=== PATIENT | female | born 1980 | race Caucasian/White ===

== ENCOUNTER 2017-08-04 20:45 | Inpatient (IN) | payer SELFPAY ==
[~2017-08-04] VITALS: Ht 152.4 cm; Wt 80.3 kg
[2017-08-04 20:48] VITALS: BP 155/94; PULSE 114; RESP 16; TEMP 99.2; O2SAT 99
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
[2017-08-04] MEDS ORDERED: MORPHINE SULFATE 2 MG/ML SYRINGE IM ONE ×2 (21:15→21:45)
[2017-08-04] MEDS ORDERED: TETANUS/DIPHTHERIA TOXOID ADULT 0.5 ML VIAL IM ONE (21:15)
[2017-08-04] MEDS ORDERED: SODIUM CHLOR 0.9% 1000 ML INJ 1,000 ML IV SCH (22:00)
[2017-08-04] MEDS ORDERED: LORazepam 2 MG/ML VIAL IV PUSH ONE (22:00)
--- NOTE | 2017-08-04 22:01 | RADRPT ---
EXAM DATE: 08/04/2017 9:49 PM EDT AGE/SEX: 36 years / Female INDICATIONS: Fracture due to fall. CLINICAL DATA: This is the patient's initial encounter. Patient reports that signs and symptoms have been present for 1 day and indicates a pain score of 8/10. MEDICAL/SURGICAL HISTORY: None. Tubal ligation. COMPARISON: No prior [place] exams available for comparison. FINDINGS: Acute displaced fractures are noted involving the proximal portion of the right fibula and the distal third of the right tibia. CONCLUSION: Acute displaced fractures involving the proximal portion of the right fibula and the distal third of the right tibia. Electronically signed by: Slade Rodas MD 08/04/2017 10:00 PM EDT
[2017-08-04 22:07] LABS: AUTOMATED NEUTROPHIL # 6.3 TH/MM3 (1.8-7.7); BASOPHIL # 0.1 TH/MM3 (0-0.2); BASOPHIL % 1.5 % (0.0-2.0); EOSINOPHIL # 0.1 TH/MM3 (0-0.4); EOSINOPHIL % 0.6 % (0.0-4.0); HEMATOCRIT 41.8 % (35.0-46.0); HEMOGLOBIN 14.1 GM/DL (11.6-15.3); LYMPH % 21.3 % (9.0-44.0); LYMPHOCYTE # 1.9 TH/MM3 (1.0-4.8); MEAN CELL VOLUME 94.4 FL (80.0-100.0); MEAN CORPUSCULAR HEMOGLOBIN 31.9 PG (27.0-34.0); MEAN CORPUSCULAR HGB CONC 33.8 % (32.0-36.0); MEAN PLATELET VOLUME 7.2 FL (7.0-11.0); MONO % 6.9 % (0.0-8.0); MONOCYTE # 0.6 TH/MM3 (0-0.9); NEUT % 69.7 % (16.0-70.0); PLATELET COUNT 375 TH/MM3 (150-450); RED BLOOD COUNT 4.43 MIL/MM3 (4.00-5.30); RED CELL DISTRIBUTION WIDTH 12.3 % (11.6-17.2)
[2017-08-04 22:13] LABS: CHLORIDE 111 MEQ/L (98-107); SODIUM (NA) 141 MEQ/L (136-145)
[2017-08-04 22:14] VITALS: BP 135/82; PULSE 87; RESP 20; O2SAT 98
[2017-08-04 22:16] LABS: BICARBONATE 18.4 MEQ/L (21.0-32.0); BLOOD UREA NITROGEN 11 MG/DL (7-18); CALCIUM 8.9 MG/DL (8.5-10.1); GLUCOSE,RANDOM 112 MG/DL (74-106)
[2017-08-04 22:19] LABS: ALT (GPT) 25 U/L (10-53); AST (GOT) 21 U/L (15-37); CREATININE 0.75 MG/DL (0.50-1.00); GLOMERULAR FILTRATION RATE 88 ML/MIN (>89)
[2017-08-04 22:21] LABS: TOTAL BILIRUBIN ADULT 0.1 MG/DL (0.2-1.0); TOTAL PROTEIN 8.5 GM/DL (6.4-8.2)
[2017-08-04 22:22] LABS: ALKALINE PHOSPHATASE 144 U/L (45-117)
[2017-08-04] MEDS ORDERED: ACETAMINOPHEN 325 MG TAB PO PRN (22:30)
[2017-08-04] MEDS ORDERED: LACTULOSE SYRUP 20 GM/30 ML CUP PO PRN (22:30)
[2017-08-04] MEDS ORDERED: BISACODYL 10 MG SUPP RECTAL PRN (22:30)
[2017-08-04] MEDS ORDERED: ACETAMINOPHEN/HYDROcodone 325 MG/5 MG TAB PO PRN (22:30)
[2017-08-04] MEDS ORDERED: MAGNESIUM HYDROXIDE SUSP 30 ML CUP PO PRN (22:30)
[2017-08-04] MEDS: SODIUM CHLOR 0.9% 1000 ML INJ 1,000 ML IV SCH (22:30)
[2017-08-04] MEDS ORDERED: SENNOSIDES 8.6 MG TAB PO PRN (22:30)
[2017-08-04] MEDS ORDERED: METOCLOPRAMIDE HCL 10 MG/2 ML VIAL IV PUSH PRN (22:30)
[2017-08-04] MEDS ORDERED: SODIUM CHLORIDE 0.9% FLUSH 10 ML FLUSH IV FLUSH PRN (22:30)
[2017-08-04] MEDS ORDERED: MORPHINE SULFATE 4 MG/ML INJ IV PUSH ONE (22:45)
[2017-08-04 23:05] VITALS: BP 131/78; PULSE 116; RESP 20; O2SAT 97
[2017-08-05] VITALS (9 sets, daily range): BP systolic 98–132; BP diastolic 55–86; PULSE 67–91; RESP 18–20; TEMP 97.7–98.3; O2SAT 96–99
[2017-08-05] MEDS: MORPHINE SULFATE 4 MG/ML INJ IV PUSH PRN ×3 (01:33→23:38)
[2017-08-05] MEDS ORDERED: LACTATED RINGER'S 1000 ML IV PRN (02:30)
[2017-08-05] MEDS ORDERED: POVIDONE IODINE 5% (ANTISEPSIS KIT) 4 APPLICATIONS EACH NARE PRN (02:30)
[2017-08-05] MEDS ORDERED: SODIUM CHLORID 0.9% 500 ML IV PRN (02:30)
[2017-08-05] MEDS ORDERED: CHLORHEXIDINE GLUCONATE 2 % 1 PACK (2 CLOTHS) TOPICAL PRN (02:30)
[2017-08-05] MEDS ORDERED: MORPHINE SULFATE 4 MG/ML INJ IV ONE ×2 (03:00→12:30)
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
[2017-08-05] MEDS ORDERED: LORazepam 2 MG/ML VIAL IV PUSH ONE (04:15)
[2017-08-05] MEDS: HYDROmorphone HCL PF 0.5 MG/0.5 ML SYRINGE IV PRN ×3 (04:19→19:29)
[2017-08-05 07:31] LABS: AUTOMATED NEUTROPHIL # 6.3 TH/MM3 (1.8-7.7); BASOPHIL % 0.4 % (0.0-2.0); EOSINOPHIL % 0.4 % (0.0-4.0); HEMATOCRIT 37.8 % (35.0-46.0); HEMOGLOBIN 12.7 GM/DL (11.6-15.3); LYMPH % 26.7 % (9.0-44.0); LYMPHOCYTE # 2.6 TH/MM3 (1.0-4.8); MEAN CELL VOLUME 95.8 FL (80.0-100.0); MEAN CORPUSCULAR HEMOGLOBIN 32.2 PG (27.0-34.0); MEAN CORPUSCULAR HGB CONC 33.6 % (32.0-36.0); MONO % 7.9 % (0.0-8.0); MONOCYTE # 0.8 TH/MM3 (0-0.9); NEUT % 64.6 % (16.0-70.0); PLATELET COUNT 338 TH/MM3 (150-450); RED BLOOD COUNT 3.95 MIL/MM3 (4.00-5.30); RED CELL DISTRIBUTION WIDTH 13.3 % (11.6-17.2); WHITE BLOOD COUNT 9.8 TH/MM3 (4.0-11.0)
[2017-08-05 07:52] LABS: ALBUMIN 3.3 GM/DL (3.4-5.0); ALT (GPT) 20 U/L (10-53); AST (GOT) 17 U/L (15-37); BICARBONATE 18.8 MEQ/L (21.0-32.0); BLOOD UREA NITROGEN 10 MG/DL (7-18); CALCIUM 7.8 MG/DL (8.5-10.1); CHLORIDE 116 MEQ/L (98-107); CREATININE 0.62 MG/DL (0.50-1.00); GLOMERULAR FILTRATION RATE 110 ML/MIN (>89); GLUCOSE,RANDOM 78 MG/DL (74-106); SODIUM (NA) 147 MEQ/L (136-145)
[2017-08-05 07:55] LABS: ALKALINE PHOSPHATASE 112 U/L (45-117); TOTAL BILIRUBIN ADULT 0.3 MG/DL (0.2-1.0); TOTAL PROTEIN 7.2 GM/DL (6.4-8.2)
[2017-08-05] MEDS: DOCUSATE SODIUM 50 MG/SENNA 8.6 MG TAB PO SCH ×3 (09:00→19:52)
[2017-08-05] MEDS: SODIUM CHLORIDE 0.9% FLUSH 10 ML FLUSH IV FLUSH SCH ×2 (09:00→19:44)
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
[2017-08-05] MEDS ORDERED: *morphine SULFATE 4 MG/ML PERIprocedure ONLY ONE (10:33)
[2017-08-05] MEDS ORDERED: MIDAZOLAM HCL 2 MG/2 ML VIAL ONE (11:57)
[2017-08-05] MEDS ORDERED: GLYCOPYRROLATE 1 MG/5 ML SYRINGE IV PUSH ONE (12:00)
[2017-08-05] MEDS ORDERED: LACTATED RINGER'S 1000 ML INJ 1,000 ML IV ONE (12:00)
[2017-08-05] MEDS ORDERED: LIDOCAINE HCL 1% PF 5 ML SYRINGE OTHER ONE (12:00)
[2017-08-05] MEDS ORDERED: NEOSTIGMINE 5 MG/5 ML SYRINGE IV PUSH ONE (12:00)
[2017-08-05] MEDS ORDERED: ONDANSETRON HCL 4 MG/2 ML VIAL IV ONE (12:00)
[2017-08-05] MEDS ORDERED: ROCURONIUM INJ 50 MG/5 ML SYRINGE IV PUSH ONE (12:00)
[2017-08-05] MEDS ORDERED: DEXAMETHASONE SOD PHOS 4 MG/ML VIAL IV ONE (12:00)
[2017-08-05] MEDS ORDERED: MIDAZOLAM HCL 2 MG/2 ML VIAL IV ONE (12:30)
[2017-08-05] MEDS ORDERED: VANCOMYCIN HCL 1000 MG VIAL ONE (12:59)
[2017-08-05] MEDS ORDERED: ceFAZolin INJ 1,000 MG VIAL ONE (12:59)
[2017-08-05] MEDS ORDERED: ACETAMINOPHEN 1000 MG/100 ML 100 ML IV ONE (13:13)
[2017-08-05] MEDS ORDERED: FAMOTIDINE 20 MG/2 ML VIAL ONE (13:13)
--- NOTE | 2017-08-05 14:28 | PD.OP ---
cc: Jovanny Howard MD Operative Report Date of Surgery: Aug 05, 2017 Preoperative Diagnosis: Right tibia and fibula shaft fracture Postoperative Diagnosis: Same Procedure: Right tibia treatment of fracture with intramedullary nail Anesthesia: General Surgeon: Jovanny Howard Volunteer Services Manager(s): KUN Jiménez The surgical procedure was assisted by my Advanced Registered Nurse Practitioner. My COMMERCIAL ATTORNEY presence was necessary throughout this case for the manipulation and positioning of the surgical extremity. My COMMERCIAL ATTORNEY was assisting me throughout the duration of this procedure. The skill set of an Advance Registered Nurse Practitioner was medically necessary to complete this procedure. During the surgical case, the surgical aide was working at the back table and the Advance Registered Nurse Practitioner was directly assisting me. Operation and Findings: Implants: Synthes tibal nail, size: 9 x 285 Estimated blood loss: 150 cc The patient received intravenous vancomycin and Ancef. After the appropriate anesthesia was administered, the patient was prepped and draped in the supine position in the usual sterile fashion. Skin assessment showed no wounds around the tibia but small abrasion around anterior inferior knee. There was mild swelling noted to the leg. We made incision proximal to the patella. We carefully dissected down to the quadriceps tendon. An in-line longitudinal split to the quadriceps tendon was completed. The capsule of the knee was entered. We placed the smooth trocar within the knee joint down to the proximal tibia, protecting the patella and trochlea during the case. We then reduced the tibia fracture manually and under fluoroscopic imaging. A ball-tipped guidewire was placed into the tibial shaft, passing the fracture site. This was placed down to the distal physeal line of the tibia. We then sequentially reamed the tibia to 1 mm larger than the implanted tibial nail. We obtained good cortical chatter. We measured the appropriate length for the tibial nail. We then passed the tibial nail into the medullary canal of the tibia. We used the perfect yuhaaviatam technique distally to visualize the distal tibial screw holes. We placed 2 screws distally. We confirmed we had anatomic alignment and rotation of the leg. We then back slapped the nail to obtain excellent cortical compression. The nail was secured proximally with 1 screw, using the associated jig as a guide . We thoroughly irrigated the incisions including a lavage of the arthrotomy site proximally. The quadriceps split was closed with a #1 Vicryl. The remaining incisions were closed with #2-0 Vicryl, followed by wan. The postoperative plan is for nonweightbearing with early range of motion of the knee and ankle. Chemical DVT prophylaxis will be performed with Lovenox followed by aspirin. Jovanny Howard MD Aug 05, 2017 14:28
[2017-08-05] MEDS ORDERED: diphenhydrAMINE HCL 25 MG CAP PO PRN (14:30)
[2017-08-05] MEDS ORDERED: PHARMACY INFORMATION XX ONE (14:30)
[2017-08-05] MEDS ORDERED: ASPI-183 PO (14:30)
[2017-08-05] MEDS ORDERED: NALOXONE HCL 0.4 MG/ML AMP IV PUSH PRN (14:30)
[2017-08-05] MEDS ORDERED: NURSING INFORMATION XX PRN (14:30)
[2017-08-05] MEDS ORDERED: NORC5TAB PO (14:30)
[2017-08-05] MEDS ORDERED: ONDANSETRON ODT 4 MG TAB PO PRN (14:30)
[2017-08-05] MEDS ORDERED: ACETAMINOPHEN/HYDROcodone 325 MG/5 MG TAB PO PRN (14:30)
[2017-08-05] MEDS ORDERED: Post-op Orders (for Pharmacy) XX ONE (14:30)
[2017-08-05] MEDS ORDERED: MAGNESIUM HYDROXIDE SUSP 30 ML CUP PO PRN (14:30)
[2017-08-05] MEDS ORDERED: ENOX40IN SQ (14:30)
[2017-08-05] MEDS ORDERED: *MEPERIDINE 25 MG INJ VIAL PERIprocedural Use ONLY ONE (14:39)
[2017-08-05] MEDS ORDERED: DO NOT ADM ANY ANTICOAGULANT DRUGS PRN (14:42)
[2017-08-05] MEDS: DEXT 5%-NACL 0.45% 1000 ML INJ 1,000 ML IV SCH (15:00)
[2017-08-05] MEDS ORDERED: HYDROmorphone HCL PF 2 MG/ML VIAL ONE (15:09)
--- NOTE | 2017-08-05 15:43 | EKG ---
Date Performed: 08/04/2017 Time Performed: 22:01:17 PTAGE: 36 years EKG: SINUS TACHYCARDIA ABNORMAL RHYTHM ECG NO PREVIOUS TRACING DOCTOR: Carlos Stoddard Interpretating Date/Time 08/05/2017 15:43:01
--- NOTE | 2017-08-05 16:07 | RADRPT ---
EXAM DATE: 08/05/2017 3:58 PM EDT AGE/SEX: 36 years / Female INDICATIONS: Open reduction, internal fixation of right tibia. CLINICAL DATA: This is the patient's initial encounter. Patient reports that signs and symptoms have been present for 1 day and indicates a pain score of Nonresponsive. MEDICAL/SURGICAL HISTORY: None. None. COMPARISON: [facility], TIBIA/FIBULA RIGHT (AP/LAT), 08/04/2017. . FINDINGS: Interim rodding of the spiral fracture of the mid to distal shaft of the right tibia. Alignment is ne ar-anatomic. The proximal shaft fracture of the right fibula is also now in near-anatomic alignment. No acute complications are demonstrated. CONCLUSION: Interim tibial rodding with no evidence of an acute complication. Near-anatomic alignment of fracture s distal shaft of the right tibia and proximal shaft of the right fibula. Electronically signed by: Olegario Bishop MD 08/05/2017 4:06 PM EDT
[2017-08-05] MEDS: ACETAMINOPHEN/HYDROcodone 325 MG/5 MG TAB PO PRN (21:49)
[2017-08-06] MEDS: DEXT 5%-NACL 0.45% 1000 ML INJ 1,000 ML IV SCH ×2 (00:22→18:00)
[2017-08-06] MEDS: ACETAMINOPHEN/HYDROcodone 325 MG/5 MG TAB PO PRN (03:34)
[2017-08-06 04:17] VITALS: BP 128/58; PULSE 87; RESP 18; TEMP 98.1; O2SAT 98
[2017-08-06] MEDS: SODIUM CHLOR 0.9% 1000 ML INJ 1,000 ML IV SCH ×2 (04:30→13:49)
[2017-08-06] MEDS: MORPHINE SULFATE 4 MG/ML INJ IV PUSH PRN ×5 (04:35→21:52)
[2017-08-06 08:00] VITALS: BP 141/92; PULSE 92; RESP 19; TEMP 98.2; O2SAT 98
[2017-08-06] MEDS: DOCUSATE SODIUM 50 MG/SENNA 8.6 MG TAB PO SCH ×3 (08:09→21:46)
[2017-08-06] MEDS: SODIUM CHLORIDE 0.9% FLUSH 10 ML FLUSH IV FLUSH SCH ×2 (08:10→21:59)
[2017-08-06] MEDS ORDERED: oxyCODONE/ACETAMINOPHEN 5 MG/325 MG TAB PO PRN (08:45)
[2017-08-06] MEDS ORDERED: NALOXONE HCL 0.4 MG/ML AMP IV PUSH PRN ×2 (08:45→16:45)
[2017-08-06] MEDS ORDERED: oxyCODONE/ACETAMINOPHEN 10 MG/325 MG TAB PO PRN ×2 (08:45→16:45)
[2017-08-06] MEDS ORDERED: MULTIVITAMINS/MINERALS THERAPEUTIC TAB PO SCH (09:00)
--- NOTE | 2017-08-06 10:42 | HHI.PR ---
Subjective Remarks Patient states that the [place] is not helping with her pain postsurgery. Still complains of a lot of pain over the right tib-fib fracture and requesting another pain medication at this time. Objective Vitals Vital Signs Date Time Temp Pulse Resp B/P (MAP) Pulse Ox O2 Delivery O2 Flow Rate FiO2 08/06/17 08:00 98.2 92 19 141/92 (108) 98 08/06/17 04:17 98.1 87 18 128/58 (81) 98 08/05/17 23:58 98.3 80 18 123/77 (92) 97 08/05/17 19:55 97.7 80 18 130/75 (93) 98 08/05/17 15:25 98.2 80 18 132/86 (101) 99 08/05/17 15:15 91 18 147/70 (95) 99 Nasal Cannula 3 08/05/17 15:00 96 18 141/63 (89) 96 Nasal Cannula 3 08/05/17 14:40 97.8 110 18 168/74 (105) 94 Nasal Cannula 3 I/O 08/05/17 08/05/17 08/05/17 08/06/17 08/06/17 08/06/17 07:00 15:00 23:00 07:00 15:00 23:00 Intake Total 300 ml 1000 ml 120 ml 480 ml Output Total 650 ml 550 ml 100 ml 650 ml Balance -350 ml 450 ml 20 ml -170 ml Intake Oral 0 ml 120 ml 480 ml IV Total 300 ml Other 1000 ml Output Urine Total 650 ml 400 ml 100 ml 650 ml Estimated Blood Loss 150 ml # Bowel Movements 0 0 Result Diagram: 08/05/17 0649 08/05/17 0649 Objective Remarks GENERAL: This is a well-nourished, well-developed patient, in no apparent distress. CARDIOVASCULAR: Regular rate and rhythm RESPIRATORY: Clear to auscultation. Breath sounds equal bilaterally. No wheezes , rales, or rhonchi. GASTROINTESTINAL: Abdomen soft, non-tender, nondistended. Normal active bowel sounds MUSCULOSKELETAL: Right extremity bandage clean dry intact NEURO: Alert & Oriented x4 to person, place, time, situation. Moves all ext x4 Procedures 08/05 tib-fib fracture status post IM nailing on the right with Dr. Howard A/P Problem List: (1) Tibia/fibula fracture ICD Code: S82.209A - Unspecified fracture of shaft of unspecified tibia, initial encounter for closed fracture; S82.409A - Unspecified fracture of shaft of unspecified fibula, initial encounter for closed fracture Status: Acute Assessment and Plan 36 y/o female with no medical history presented to the ED with complaints of right lower extremity pain. Tib/Fib fracture, right status post operative day #1 IM nailing continue postoperative care, pain control, physical therapy per Dr. Howard Will change [place] to Percocet due to patient's continued intractable pain today. Continue bowel regimen DVT prophylaxis: SCDs on non affected leg and Lovenox. Discharge Planning Home with home health care when pain better control. Problem Qualifiers (1) Tibia/fibula fracture: Qualified Codes: S82.201A - Unspecified fracture of shaft of right tibia, initial encounter for closed fracture; S82.401A - Unspecified fracture of shaft of right fibula, initial encounter for closed fracture Loree Hewitt MD Aug 06, 2017 10:42
[2017-08-06 12:00] VITALS: BP 136/81; PULSE 80; RESP 18; TEMP 97.2; O2SAT 100
[2017-08-06] MEDS ORDERED: PROPOFOL 200 MG/20 ML AMP IV ONE (12:00)
[2017-08-06] MEDS ORDERED: NEOSTIGMINE 5 MG/5 ML SYRINGE IV PUSH ONE (12:00)
[2017-08-06] MEDS ORDERED: LIDOCAINE HCL 1% PF 5 ML SYRINGE OTHER ONE (12:00)
[2017-08-06] MEDS ORDERED: ROCURONIUM INJ 50 MG/5 ML SYRINGE IV PUSH ONE (12:00)
[2017-08-06] MEDS ORDERED: DEXAMETHASONE SOD PHOS 4 MG/ML VIAL IV ONE (12:00)
[2017-08-06] MEDS ORDERED: ONDANSETRON HCL 4 MG/2 ML VIAL IV PUSH ONE (12:00)
[2017-08-06] MEDS ORDERED: GLYCOPYRROLATE 1 MG/5 ML SYRINGE IV PUSH ONE (12:00)
[2017-08-06] MEDS ORDERED: LACTATED RINGER'S 1000 ML INJ 1,000 ML IV ONE (12:00)
[2017-08-06] MEDS ORDERED: SUCCINYLCHOLINE CHLORIDE 100 MG/5 ML SYRINGE IV PUSH ONE (12:00)
[2017-08-06] MEDS ORDERED: ENOXAPARIN SODIUM 40 MG/0.4 ML SYRINGE SQ SCH (13:00)
--- NOTE | 2017-08-06 13:53 | PD.ORT.PN ---
Subjective Post Op Day #: 1 Subjective Remarks Patient is resting in bed with c/o moderate to severe pain to the right lower leg, ankle and calf. Objective Vitals Vital Signs Date Time Temp Pulse Resp B/P (MAP) Pulse Ox O2 Delivery O2 Flow Rate FiO2 08/06/17 08:00 98.2 92 19 141/92 (108) 98 08/06/17 04:17 98.1 87 18 128/58 (81) 98 08/05/17 23:58 98.3 80 18 123/77 (92) 97 08/05/17 19:55 97.7 80 18 130/75 (93) 98 08/05/17 15:25 98.2 80 18 132/86 (101) 99 08/05/17 15:15 91 18 147/70 (95) 99 Nasal Cannula 3 08/05/17 15:00 96 18 141/63 (89) 96 Nasal Cannula 3 08/05/17 14:40 97.8 110 18 168/74 (105) 94 Nasal Cannula 3 I/O 08/05/17 08/05/17 08/05/17 08/06/17 08/06/17 08/06/17 07:00 15:00 23:00 07:00 15:00 23:00 Intake Total 300 ml 1000 ml 120 ml 480 ml Output Total 650 ml 550 ml 100 ml 650 ml Balance -350 ml 450 ml 20 ml -170 ml Intake Oral 0 ml 120 ml 480 ml IV Total 300 ml Other 1000 ml Output Urine Total 650 ml 400 ml 100 ml 650 ml Estimated Blood Loss 150 ml # Bowel Movements 0 0 Result Diagram: 08/05/17 0649 08/05/17 0649 Procedures Measured compartments of the right lower leg Anterior: 31 mmhg Lateral: 38 mmhg Medial: 3 mmhg Posterior: 20 mmhg BP: 137/83 Objective Remarks Dressings are C/D/I. EHL/TA/G intact. 2+ DP. Calf compartments are firm and tender to touch, especially laterally. +SILT distally Assessment & Plan Ortho Post Op Day #: 1 Problem List: Assessment and Plan POD #1: Right Tibial Nail for TIB/Fib fracture 1. NWB RLE 2. Hold Lovenox for compartment syndrome and emergency fasciotomy of the calf 3. Consents on chart. Leg marked 4. Patient will be NPO. 5. Patient's Lovenox is being held 6. We will proceed with emergency surgery for right calf compartment syndrome. Dr. Howard to see and consent patient. Jaylen Mckeon Aug 06, 2017 13:52
[2017-08-06] MEDS ORDERED: GENTAMICIN SULFATE 80 MG/2 ML VIAL ONE (14:54)
[2017-08-06] MEDS ORDERED: CLINDAMYCIN PHOS 600 MG/4 ML VIAL ONE (15:50)
--- NOTE | 2017-08-06 16:34 | PD.OP ---
cc: Jovanny Howard MD Operative Report Date of Surgery: Aug 06, 2017 Preoperative Diagnosis: Right leg posttraumatic compartment syndrome Postoperative Diagnosis: Same Procedure: Right lower leg 4 compartment open fasciotomy Anesthesia: General Surgeon: Jovanny Howard Drill Sergeant(s): KUN Jiménez The surgical procedure was assisted by my Advanced Registered Nurse Practitioner. My SHOEBLACK presence was necessary throughout this case for the manipulation and positioning of the surgical extremity. My SHOEBLACK was assisting me throughout the duration of this procedure. The skill set of an Advance Registered Nurse Practitioner was medically necessary to complete this procedure. During the surgical case, the surgical clinical reviewer was working at the back table and the Advance Registered Nurse Practitioner was directly assisting me. Operation and Findings: Justification for the procedure. This is a 36-year-old female who underwent a routine intramedullary nail fixation surgery yesterday for a tibia/fibula fracture. That surgery was uncomplicated. At the end of the previous surgery the patient's compartments were soft without any evidence of compartment syndrome. When this patient was seen on postop rounds today she was complaining of significant pain around the calf which was not being managed well with medicines. The nurse practitioner who is rounding on the patient was suspicious of compartment syndrome since the patient had developed more significant swelling of the leg and the compartments were now starting to feel full and firm. At the bedside the nurse practitioner performed monitoring of the compartment pressures. Based on the results showing anterior 31, lateral 38 , and posterior 29 mmHg of pressure I felt that the patient does have evidence of compartment syndrome. I discussed the risks and benefits of surgical management with the patient at the bedside. I do recommend emergent surgical management for this condition to consist of open fasciotomy. She understands that she may have open wounds including a wound VAC which may require more surgical management for closure and/or skin grafting. She understands the risks of surgery include but are not limited to injury to nerves, blood vessels , bleeding, infection, need for further surgery, medical complications such as heart attack, stroke, . As far as coding purposes this surgery is unrelated to surgery that was done yesterday as far as intramedullary nailing. This current medical condition is not a complication to the intramedullary nail procedure. Rather, this is a known sequela/complication of significant traumatic injury to the soft tissues which were in addition to the bone fracture which are now requiring surgical management to the fascia/soft tissues. The patient was brought to the operative theater. General anesthesia was administered. She had just received Ancef 2 hours ago so we gave her a dose of clindamycin. The right lower extremity was prepped and draped in usual sterile fashion. We did note swelling of the leg most significant in the anterior and lateral compartments. We incised between these 2 compartments. We identified the fascia of the anterior compartment and incised through this proximally and distally and we did the same to the lateral compartment. We also incised intervening fascia to help release as much pressure as possible. The muscles did expand as expected. All muscles were tested that were exposed and they all had excellent color, consistency, contractility and quality. There was no evidence of necrosis. Once we completed this we were unable to close the skin due to the swelling. The lateral incision was approximately 15 cm. We made a small incision approximately 4 cm on the medial aspect of the leg off of the medial face of the tibia. We then performed fasciotomy of the posterior superficial and posterior deep compartments using Metzenbaum scissors. We irrigated all of the wounds. We were able to close the medial incision using 2- 0 Vicryl and 3-0 nylon. There is much less swelling on the medial side at this point. The lateral side was dressed with a vacuum-assisted dressing. Postoperative plan is for repeat surgical management either for secondary closure or skin grafting depending on how her swelling goes. At this point no changes in management for the fracture as previously described in my other operative note. Jovanny Howard MD Aug 06, 2017 16:34
[2017-08-06] MEDS ORDERED: PHARMACY INFORMATION XX ONE (16:45)
[2017-08-06] MEDS ORDERED: NURSING INFORMATION XX PRN (16:45)
[2017-08-06] MEDS ORDERED: Post-op Orders (for Pharmacy) XX ONE (16:45)
[2017-08-06] MEDS ORDERED: MAGNESIUM HYDROXIDE SUSP 30 ML CUP PO PRN (16:45)
[2017-08-06] MEDS ORDERED: *MEPERIDINE 25 MG INJ VIAL PERIprocedural Use ONLY ONE (16:54)
[2017-08-06] MEDS ORDERED: MIDAZOLAM HCL 2 MG/2 ML VIAL ONE (16:58)
[2017-08-06] MEDS ORDERED: *morphine SULFATE 8 MG/ML PERIprocedure ONLY ONE ×2 (17:04→17:10)
[2017-08-06] MEDS ORDERED: DIMETHICONE/OXYBENZONE/PADMIATE LIP BALM 4.25 GM TOPICAL ONE (17:10)
[2017-08-06] MEDS ORDERED: DO NOT ADM ANY ANTICOAGULANT DRUGS PRN (18:00)
[2017-08-06] MEDS: ALPRAZolam 0.25 MG TAB PO PRN (18:28)
[2017-08-06 20:05] VITALS: BP 124/59; PULSE 84; RESP 18; TEMP 97.7; O2SAT 97
[2017-08-06 20:15] LABS: HEMATOCRIT 31.5 % (35.0-46.0); HEMOGLOBIN 11.2 GM/DL (11.6-15.3)
[2017-08-06] MEDS: oxyCODONE/ACETAMINOPHEN 10 MG/325 MG TAB PO PRN ×2 (21:46→23:59)
[2017-08-07] VITALS: BP 123/61; PULSE 84; RESP 18; TEMP 97.9; O2SAT 97
[2017-08-07] MEDS: MORPHINE SULFATE 4 MG/ML INJ IV PUSH PRN ×5 (02:19→21:32)
[2017-08-07 04:00] VITALS: BP 112/60; PULSE 76; RESP 17; TEMP 98.1; O2SAT 97
[2017-08-07] MEDS: DEXT 5%-NACL 0.45% 1000 ML INJ 1,000 ML IV SCH ×2 (04:00→14:00)
[2017-08-07] MEDS: oxyCODONE/ACETAMINOPHEN 10 MG/325 MG TAB PO PRN ×5 (05:51→23:50)
[2017-08-07] MEDS: ALPRAZolam 0.25 MG TAB PO PRN ×3 (05:51→23:51)
[2017-08-07 08:00] VITALS: BP 120/83; PULSE 82; RESP 18; TEMP 97.2; O2SAT 98
[2017-08-07] MEDS: DOCUSATE SODIUM 50 MG/SENNA 8.6 MG TAB PO SCH ×2 (08:17→21:31)
[2017-08-07] MEDS: SODIUM CHLORIDE 0.9% FLUSH 10 ML FLUSH IV FLUSH SCH ×2 (08:18→21:31)
--- NOTE | 2017-08-07 10:58 | HHI.PR ---
Subjective Remarks Pain is much better controlled after surgery and also on Percocet. Patient complained of heartburn and requests medication for this. Has tried over-the- counter medication PPI in the past. Objective Vitals Vital Signs Date Time Temp Pulse Resp B/P (MAP) Pulse Ox O2 Delivery O2 Flow Rate FiO2 08/07/17 08:22 18 08/07/17 08:00 97.2 82 18 120/83 (95) 98 08/07/17 04:00 98.1 76 17 112/60 (77) 97 08/07/17 00:00 97.9 84 18 123/61 (81) 97 08/06/17 20:05 97.7 84 18 124/59 (80) 97 08/06/17 17:30 88 16 123/77 (92) 98 Room Air 08/06/17 17:15 90 16 113/58 (76) 97 Room Air 08/06/17 17:00 100 16 135/62 (86) 96 Room Air 08/06/17 16:49 98.3 108 16 141/97 (112) 96 08/06/17 12:00 97.2 80 18 136/81 (99) 100 I/O 08/06/17 08/06/17 08/06/17 08/07/17 08/07/17 08/07/17 07:00 15:00 23:00 07:00 15:00 23:00 Intake Total 480 ml 100 ml 950 ml 500 ml Output Total 650 ml 50 ml Balance -170 ml 100 ml 900 ml 500 ml Intake Oral 480 ml 500 ml IV Total 100 ml 50 ml Other 900 ml Output Urine Total 650 ml Drainage Total 0 ml Estimated Blood Loss 50 ml # Voids 3 3 # Bowel Movements 0 Result Diagram: 08/06/17200308/05/17 0649 Objective Remarks GENERAL: This is a well-nourished, well-developed patient, in no apparent distress. CARDIOVASCULAR: Regular rate and rhythm RESPIRATORY: Clear to auscultation. Breath sounds equal bilaterally. No wheezes , rales, or rhonchi. GASTROINTESTINAL: Abdomen soft, non-tender, nondistended. Normal active bowel sounds MUSCULOSKELETAL: Right extremity bandage clean dry intact wound VAC in place, NEURO: Alert & Oriented x4 to person, place, time, situation. Moves all ext x4 Procedures 08/05 tib-fib fracture status post IM nailing on the right with Dr. Howard A/P Problem List: (1) Tibia/fibula fracture ICD Code: S82.209A - Unspecified fracture of shaft of unspecified tibia, initial encounter for closed fracture; S82.409A - Unspecified fracture of shaft of unspecified fibula, initial encounter for closed fracture Status: Acute Assessment and Plan 36 y/o female with no medical history presented to the ED with complaints of right lower extremity pain. Tib/Fib fracture, right status post operative day #2 IM nailing continue postoperative care, pain control, physical therapy per Dr. Howard changed Barling to Percocet due to patient's continued intractable pain today. Acute compartment syndrome right, status post operative day #1 post open fasciotomy- continue postoperative care wound VAC per Dr. Howard GERD initiate PPI DVT prophylaxis: SCDs on non affected leg and Lovenox. Discharge Planning Home with home health care when pain better control and cleared by orthopedic surgery. Problem Qualifiers (1) Tibia/fibula fracture: Qualified Codes: S82.201A - Unspecified fracture of shaft of right tibia, initial encounter for closed fracture; S82.401A - Unspecified fracture of shaft of right fibula, initial encounter for closed fracture Loree Hewitt MD Aug 07, 2017 10:58
[2017-08-07] MEDS ORDERED: PANTOPRAZOLE SOD 40 MG DELAYED RELEASE TAB PO ONE (11:00)
[2017-08-07 12:00] VITALS: BP 115/79; PULSE 83; RESP 18; TEMP 98.1; O2SAT 99
[2017-08-07 16:00] VITALS: BP 121/58; PULSE 81; RESP 18; TEMP 97.9; O2SAT 95
[2017-08-07] MEDS: ENOXAPARIN SODIUM 40 MG/0.4 ML SYRINGE SQ SCH (16:46)
--- NOTE | 2017-08-07 17:33 | PD.ORT.PN ---
Subjective Subjective Remarks Patient is resting in bed with overall improvement in pain. Pain has been more manageable today per patient. Objective Vitals Vital Signs Date Time Temp Pulse Resp B/P (MAP) Pulse Ox O2 Delivery O2 Flow Rate FiO2 08/07/17 17:01 18 08/07/17 16:04 18 08/07/17 16:00 97.9 81 18 121/58 (79) 95 08/07/17 12:00 98.1 83 18 115/79 (91) 99 08/07/17 08:00 97.2 82 18 120/83 (95) 98 08/07/17 04:00 98.1 76 17 112/60 (77) 97 08/07/17 00:00 97.9 84 18 123/61 (81) 97 08/06/17 20:05 97.7 84 18 124/59 (80) 97 08/06/17 17:30 88 16 123/77 (92) 98 Room Air I/O 08/06/17 08/06/17 08/06/17 08/07/17 08/07/17 08/07/17 07:00 15:00 23:00 07:00 15:00 23:00 Intake Total 480 ml 100 ml 950 ml 500 ml Output Total 650 ml 50 ml Balance -170 ml 100 ml 900 ml 500 ml Intake Oral 480 ml 500 ml IV Total 100 ml 50 ml Other 900 ml Output Urine Total 650 ml Drainage Total 0 ml Estimated Blood Loss 50 ml # Voids 3 3 # Bowel Movements 0 Result Diagram: 08/06/17200308/05/17 0649 Objective Remarks Dressings are C/D/I. EHL/TA/G intact. 2+ DP. Calf compartments mildly firm but less tender and softer than yesterday's exam. +SILT distally. Less tenderness to ankle today. Mild ecchymosis. Assessment & Plan Assessment and Plan POD #2: Right Tibial Nail for TIB/Fib fracture POD #1: Right calf fasciotomy for compartment syndrome 1. NWB RLE 2. Lovenox for DVT prophylaxis 3. Maintain wound vac at 125 continuous suction 4. Do not change dressings aside from wound vac. First dressing change in the office. 5. Plan will be to take patient back to OR for irrigation/debridement and closure of lateral surgical site once soft tissue swelling has improved. May be able to return to OR or Sunday. 6. Apply ice machine to the right calf to help aggressively manage swelling Jaylen Mckeon Aug 07, 2017 17:33
[2017-08-07 20:00] VITALS: BP 109/64; PULSE 82; RESP 17; TEMP 97.8; O2SAT 96
[2017-08-08 00:01] VITALS: BP 124/60; PULSE 80; RESP 17; TEMP 97.9; O2SAT 96
[2017-08-08] MEDS: MORPHINE SULFATE 4 MG/ML INJ IV PUSH PRN ×5 (02:43→23:10)
[2017-08-08] MEDS: oxyCODONE/ACETAMINOPHEN 10 MG/325 MG TAB PO PRN ×5 (05:44→21:32)
[2017-08-08 08:00] VITALS: BP 125/66; PULSE 71; RESP 20; TEMP 97.3; O2SAT 97
[2017-08-08] MEDS: SODIUM CHLORIDE 0.9% FLUSH 10 ML FLUSH IV FLUSH SCH ×2 (09:00→21:33)
[2017-08-08] MEDS: DOCUSATE SODIUM 50 MG/SENNA 8.6 MG TAB PO SCH ×2 (09:24→21:32)
[2017-08-08] MEDS: PANTOPRAZOLE SOD 40 MG DELAYED RELEASE TAB PO SCH (09:25)
[2017-08-08] MEDS: ALPRAZolam 0.25 MG TAB PO PRN ×2 (09:25→17:18)
[2017-08-08] MEDS: DEXT 5%-NACL 0.45% 1000 ML INJ 1,000 ML IV SCH ×3 (10:00→20:00)
--- NOTE | 2017-08-08 10:18 | HHI.PR ---
Subjective Remarks Pt frustrated today because RN dispensed her pain meds late. States that she was better controlled before but now it is a 12/12. Denies any CP/SOB/N/V Objective Vitals Vital Signs Date Time Temp Pulse Resp B/P (MAP) Pulse Ox O2 Delivery O2 Flow Rate FiO2 08/08/17 08:00 97.3 71 20 125/66 (85) 97 08/08/17 00:01 97.9 80 17 124/60 (81) 96 08/07/17 20:00 97.8 82 17 109/64 (79) 96 08/07/17 18:45 Room Air 08/07/17 17:01 18 08/07/17 16:04 18 08/07/17 16:00 97.9 81 18 121/58 (79) 95 08/07/17 12:00 98.1 83 18 115/79 (91) 99 I/O 08/07/17 08/07/17 08/07/17 08/08/17 08/08/17 08/08/17 07:00 15:00 23:00 07:00 15:00 23:00 Intake Total 500 ml 360 ml Output Total 50 ml 40 ml Balance 500 ml -50 ml 320 ml Intake Oral 500 ml 360 ml Drainage Total 50 ml 40 ml # Voids 3 2 Result Diagram: 08/06/17200308/05/17 0649 Imaging Last Impressions Tibia/Fibula X-Ray 08/05/17 0000 Signed Impressions: CONCLUSION: Interim tibial rodding with no evidence of an acute complication. Near-anatomic alignment of fractures distal shaft of the right tibia and proximal shaft of t he right fibula. Objective Remarks GENERAL: appears upset and uncomfortable. CARDIOVASCULAR: Regular rate and rhythm RESPIRATORY: Clear to auscultation. Breath sounds equal bilaterally. No wheezes GASTROINTESTINAL: Abdomen soft, non-tender, nondistended. Normal active bowel sounds MUSCULOSKELETAL: Right extremity bandage clean dry intact wound VAC in place, NEURO: answers questions, able to stand up and use her walker to use the restroom after my exam Procedures 08/05 tib-fib fracture status post IM nailing on the right with Dr. Howard A/P Problem List: (1) Tibia/fibula fracture ICD Code: S82.209A - Unspecified fracture of shaft of unspecified tibia, initial encounter for closed fracture; S82.409A - Unspecified fracture of shaft of unspecified fibula, initial encounter for closed fracture Status: Acute Assessment and Plan Tibia/fibula fracture 36 y/o female with no medical history presented to the ED with complaints of right lower extremity pain. POD #3: Right Tibial Nail for TIB/Fib fracture POD #2: Right calf fasciotomy for compartment syndrome Orthopedic sx following. Continue pain control. On lovenox for DVT proph. NWB RLE per ortho. Wound vac in place and dressing changes per ortho recs. Pt is scheduled to go back to OR or sunday for irrigation/debridement and closure of lateral surgical sites once swelling improves. GERD initiate PPI DVT prophylaxis: SCDs on non affected leg and Lovenox. Discharge Planning Home with home health care when pain better control, once all sx completed and cleared by orthopedic surgery. Problem Qualifiers (1) Tibia/fibula fracture: Qualified Codes: S82.201A - Unspecified fracture of shaft of right tibia, initial encounter for closed fracture; S82.401A - Unspecified fracture of shaft of right fibula, initial encounter for closed fracture Diane Farmer MD Aug 08, 2017 10:18
[2017-08-08 12:00] VITALS: BP 117/69; PULSE 74; RESP 18; TEMP 97.5; O2SAT 95
--- NOTE | 2017-08-08 12:47 | PD.ORT.PN ---
Subjective Subjective Remarks pain is better now, still is icing and elevating Objective Vitals Vital Signs Date Time Temp Pulse Resp B/P (MAP) Pulse Ox O2 Delivery O2 Flow Rate FiO2 08/08/17 12:00 97.5 74 18 117/69 (85) 95 08/08/17 08:00 97.3 71 20 125/66 (85) 97 08/08/17 00:01 97.9 80 17 124/60 (81) 96 08/07/17 20:00 97.8 82 17 109/64 (79) 96 08/07/17 18:45 Room Air 08/07/17 17:01 18 08/07/17 16:04 18 08/07/17 16:00 97.9 81 18 121/58 (79) 95 I/O 08/07/17 08/07/17 08/07/17 08/08/17 08/08/17 08/08/17 06:59 14:59 22:59 06:59 14:59 22:59 Intake Total 500 ml 360 ml 100 ml Output Total 50 ml 40 ml Balance 500 ml -50 ml 320 ml 100 ml Intake Oral 500 ml 360 ml IV Total 100 ml Drainage Total 50 ml 40 ml # Voids 3 2 Result Diagram: 08/06/17200308/05/17 0649 Objective Remarks Vac is C/D/I. EHL/TA/G intact. 2+ DP. Calf compartments are soft with less swelling. +SILT distally. Assessment & Plan Assessment and Plan POD #3: Right Tibial Nail for TIB/Fib fracture POD #2: Right calf fasciotomy for compartment syndrome 1. NWB RLE 2. Lovenox for DVT prophylaxis 3. Maintain wound vac at 125 continuous suction 4. Do not change dressings aside from wound vac. 5. Plan will be to take patient back to OR for irrigation/debridement and closure of lateral surgical site once soft tissue swelling has improved. May be able to return to OR or Sunday. 6. Apply ice machine to the right calf to help aggressively manage swelling Jovanny Howard MD Aug 08, 2017 12:47
[2017-08-08] MEDS: ENOXAPARIN SODIUM 40 MG/0.4 ML SYRINGE SQ SCH (15:32)
[2017-08-08 16:00] VITALS: BP 125/77; PULSE 80; RESP 18; TEMP 97.6; O2SAT 97
[2017-08-08 20:00] VITALS: BP 117/71; PULSE 88; RESP 18; TEMP 97.5; O2SAT 100
[2017-08-09 00:01] VITALS: BP 123/63; PULSE 90; RESP 18; TEMP 98.1; O2SAT 99
[2017-08-09] MEDS: ALPRAZolam 0.25 MG TAB PO PRN ×3 (01:19→17:36)
[2017-08-09] MEDS: oxyCODONE/ACETAMINOPHEN 10 MG/325 MG TAB PO PRN ×6 (01:19→22:48)
[2017-08-09] MEDS: MORPHINE SULFATE 4 MG/ML INJ IV PUSH PRN ×4 (03:07→20:08)
[2017-08-09] MEDS: DEXT 5%-NACL 0.45% 1000 ML INJ 1,000 ML IV SCH (04:59)
[2017-08-09 06:21] LABS: BICARBONATE 24.4 MEQ/L (21.0-32.0); CALCIUM 8.1 MG/DL (8.5-10.1); CREATININE 0.59 MG/DL (0.50-1.00)
[2017-08-09] MEDS ORDERED: ceFAZolin INJ 1,000 MG VIAL ONE ×2 (06:24→07:33)
[2017-08-09] MEDS ORDERED: GENTAMICIN SULFATE 80 MG/2 ML VIAL ONE (06:24)
[2017-08-09] MEDS ORDERED: VANCOMYCIN HCL 1000 MG VIAL ONE ×2 (06:24→07:33)
[2017-08-09] MEDS ORDERED: METOPROLOL TARTRATE 25 MG TAB PO PRN (06:30)
[2017-08-09] MEDS ORDERED: SODIUM CHLORID 0.9% 500 ML IV PRN (06:30)
[2017-08-09] MEDS ORDERED: CHLORHEXIDINE GLUCONATE 2 % 1 PACK (2 CLOTHS) TOPICAL PRN (06:30)
[2017-08-09] MEDS ORDERED: LACTATED RINGER'S 1000 ML IV PRN (06:30)
[2017-08-09] MEDS ORDERED: POVIDONE IODINE 5% (ANTISEPSIS KIT) 4 APPLICATIONS EACH NARE PRN (06:30)
[2017-08-09] MEDS ORDERED: SODIUM CHLOR 0.9% 250 ML INJ 0 ML ONE (07:34)
--- NOTE | 2017-08-09 07:49 | PD.OP ---
cc: Juan Carlos Liriano MD Operative Report Date of Surgery: Aug 09, 2017 Preoperative Diagnosis: Open fasciotomy wound right lateral calf Postoperative Diagnosis: Procedure: Irrigation debridement of right calf, closure of right lateral calf fasciotomy wound Anesthesia: General Surgeon: Juan Carlos Liriano Commercial Sales Specialist(s): Wallace Dent PA-C The surgical procedure was assisted by my physician information assistant. My P.A. presence was necessary throughout this case for the manipulation and positioning of the surgical extremity. My P.A. was assisting me throughout the duration of this procedure. The skill set of a physician information assistant was medically necessary to complete this procedure. During the surgical case the surgical instrument repair specialist was working at the back table and the physician information assistant was directly assisting me. Operation and Findings: Bibi previously had a right tibia fracture treated with intramedullary nail by Dr. Howard. She subsequent developed a compartment syndrome and had fasciotomies done. I was consulted for definitive treatment of open wounds of right calf. Informed consent was obtained preoperatively. The right leg was examined. Swelling had improved significantly. Informed consent was obtained for surgery after detailed discussion of the risk and benefits of surgery. Operative site was marked. She is brought operating. She is given IV sedation and general anesthesia. Right leg was prepped with alcohol followed by Hibiclens and draped in usual sterile fashion. Timeout procedure was performed. Procedure began with examination of the wound. Overall the muscles appear to be healthy and viable. There was no necrotic muscle visible. The wound was thoroughly irrigated with sterile saline. At this point attention was turned to wound closure. Subcutaneous tissues were approximated with 3-0 PDS. Skin was closed with 2-0 nylon and 3-0 nylon. A combination of retention suture and vertical mattress suture were utilized. After completion of closure there was minimal skin tension. Skin edges were well approximated. Calf compartments were soft and compressible. Sterile dressings were applied. Patient was awakened and transferred to recovery room in stable condition. Needle sponge counts were correct. Juan Carlos Liriano MD Aug 09, 2017 07:49
[2017-08-09] MEDS ORDERED: DO NOT ADM ANY ANTICOAGULANT DRUGS PRN (08:00)
[2017-08-09] MEDS ORDERED: *MEPERIDINE 25 MG INJ VIAL PERIprocedural Use ONLY ONE (08:07)
[2017-08-09] MEDS ORDERED: *morphine SULFATE 4 MG/ML PERIprocedure ONLY ONE ×2 (08:11→08:16)
[2017-08-09] MEDS ORDERED: MIDAZOLAM HCL 2 MG/2 ML VIAL ONE (08:13)
[2017-08-09] MEDS ORDERED: HYDROmorphone HCL PF 0.5 MG/0.5 ML SYRINGE ONE (08:28)
[2017-08-09] MEDS: LACTATED RINGER'S 1000 ML INJ 1,000 ML IV SCH ×2 (08:41→17:30)
[2017-08-09 09:35] VITALS: BP 122/64; PULSE 85; RESP 20; TEMP 97.6; O2SAT 95
[2017-08-09] MEDS: DOCUSATE SODIUM 50 MG/SENNA 8.6 MG TAB PO SCH ×2 (09:44→20:07)
[2017-08-09] MEDS: SODIUM CHLORIDE 0.9% FLUSH 10 ML FLUSH IV FLUSH SCH ×2 (09:45→20:07)
[2017-08-09] MEDS: PANTOPRAZOLE SOD 40 MG DELAYED RELEASE TAB PO SCH (09:45)
[2017-08-09 11:50] VITALS: BP_SYST 128; BP_SYST 142; BP_DIAS 59; BP_DIAS 74; PULSE 62; PULSE 87; RESP 20; TEMP 97.4; TEMP 98.4; O2SAT 97; O2SAT 99
[2017-08-09] MEDS ORDERED: ONDANSETRON HCL 4 MG/2 ML VIAL IV ONE (12:00)
[2017-08-09] MEDS ORDERED: KETOROLAC TROMETHAMINE 60 MG/2 ML (IM) VIAL IM SCH (12:00)
[2017-08-09] MEDS ORDERED: PROPOFOL 200 MG/20 ML AMP IV ONE (12:00)
[2017-08-09] MEDS ORDERED: DEXAMETHASONE SOD PHOS 4 MG/ML VIAL IV ONE (12:00)
[2017-08-09] MEDS ORDERED: ROCURONIUM INJ 50 MG/5 ML SYRINGE IV PUSH ONE (12:00)
[2017-08-09] MEDS ORDERED: KETOROLAC TROMETHAMINE 30 MG/ML (IVP) VIAL IV PUSH ONE (12:00)
[2017-08-09] MEDS ORDERED: LIDOCAINE HCL 1% PF 5 ML SYRINGE OTHER ONE (12:00)
[2017-08-09] MEDS: KETOROLAC TROMETHAMINE 30 MG/ML (IVP) VIAL IV PUSH SCH ×3 (12:21→22:47)
--- NOTE | 2017-08-09 12:24 | HHI.PR ---
Subjective Remarks Follow-up left tib/fib fracture. Patient seen and examined, status post irrigation debridement of right calf, closure of right lateral calf fasciotomy wound today. Patient states pain is well controlled on current regimen. Denies any fever, chills, cough, shortness of breath, abdominal pain, nausea, vomiting, diarrhea dysuria. Patient is eating well. Patient states that she is leaving tomorrow and is "over being here". Afebrile. Vital signs stable. Objective Vitals Vital Signs Date Time Temp Pulse Resp B/P (MAP) Pulse Ox O2 Delivery O2 Flow Rate FiO2 08/09/17 09:35 97.6 85 20 122/64 (83) 95 08/09/17 08:45 97.8 83 16 109/63 (78) 95 Nasal Cannula 2 08/09/17 08:30 86 18 113/76 (88) 96 Nasal Cannula 2 08/09/17 08:15 93 15 132/63 (86) 95 Nasal Cannula 2 08/09/17 08:05 97.6 99 20 145/79 (101) 98 Nasal Cannula 3 08/09/17 00:01 98.1 90 18 123/63 (83) 99 08/08/17 20:00 97.5 88 18 117/71 (86) 100 08/08/17 16:00 97.6 80 18 125/77 (93) 97 I/O 08/08/17 08/08/17 08/08/17 08/09/17 08/09/17 08/09/17 07:00 15:00 23:00 07:00 15:00 23:00 Intake Total 360 ml 700 ml 500 ml Output Total 40 ml 100 ml 0 ml 10 ml Balance 320 ml 700 ml -100 ml 0 ml 490 ml Intake Oral 360 ml 600 ml IV Total 100 ml Other 500 ml Drainage Total 40 ml 100 ml 0 ml Estimated Blood Loss 10 ml # Voids 2 3 4 # Bowel Movements 2 1 Result Diagram: 08/06/17200308/09/17 0517 Imaging Last Impressions Tibia/Fibula X-Ray 08/05/17 0000 Signed Impressions: CONCLUSION: Interim tibial rodding with no evidence of an acute complication. Near-anatomic alignment of fractures distal shaft of the right tibia and proximal shaft of t he right fibula. Objective Remarks GENERAL: Well-developed, well-nourished patient in NAD. Patient is irritated about being in the hospital. SKIN: Warm and dry. No rash. HEAD: Normocephalic. Atraumatic. EYES: Pupils equal and round. No scleral icterus. No injection or drainage. ENT: No nasal bleeding or discharge. Mucous membranes pink and moist. CARDIOVASCULAR: Regular rate and rhythm. S1, S2 noted. No murmur appreciated. RESPIRATORY: No accessory muscle use. Clear to auscultation. Breath sounds equal bilaterally. GASTROINTESTINAL: Abdomen soft, non-tender, nondistended. Normoactive bowel sounds x4. MUSCULOSKELETAL:Extremities without clubbing, cyanosis. Right lower extremity with Milad. Sensation intact. Trace edema. NEUROLOGICAL: Awake and alert. No obvious cranial nerve deficits. Motor grossly within normal limits. 5/5 muscle strength in bilateral upper and lower extremities. Normal speech. Procedures / tib-fib fracture status post IM nailing on the right with Dr. Howard A/P Problem List: (1) Tibia/fibula fracture ICD Code: S82.209A - Unspecified fracture of shaft of unspecified tibia, initial encounter for closed fracture; S82.409A - Unspecified fracture of shaft of unspecified fibula, initial encounter for closed fracture Status: Acute Assessment and Plan 36 y/o female with no medical history presented to the ED with complaints of right lower extremity pain. Right tibia/fib fracture Orthopedic surgery following, continue management. POD #4: Right Tibial Nail for TIB/Fib fracture POD #3: Right calf fasciotomy for compartment syndrome POD 0: Irrigation and debridement of right calf, closure right lateral calf fasciotomy wound Pain control, Toradol IV scheduled, morphine IV available per pain scale. Percocet available per pain scale as well. Monitor for constipation, Megan-Colace scheduled. Bowel regimen as needed. NWB RLE per ortho. Continue physical therapy efforts. Dressing per ortho recommendations. irrigation/debridement and closure of lateral surgical sites Anxiety: Xanax as needed. GERD: PPI DVT prophylaxis: SCDs on non affected leg and Lovenox. Discharge Planning Possible DC tomorrow when cleared by ortho and pain controlled. Problem Qualifiers (1) Tibia/fibula fracture: Qualified Codes: S82.201A - Unspecified fracture of shaft of right tibia, initial encounter for closed fracture; S82.401A - Unspecified fracture of shaft of right fibula, initial encounter for closed fracture Monica Worrell Aug 09, 2017 12:24
--- NOTE | 2017-08-09 13:35 | HHI.FF ---
Face to Face Verification Diagnosis: (1) Tibia/fibula fracture Home Health Nursing Order: Medical education Signs/symptoms of disease process Medication education-adverse effect Wound care and dressing changes Nursing assessment with vital signs I have seen patient Bibi Paz on 08/09/17. My clinical findings support the need for the requested home health care services because: Deconditioned w/ increased weakness Limited ability to care for self I certify that my clinical findings support that this patient is homebound because: Post-op weakness Monica Worrell Aug 09, 2017 13:35
[2017-08-09] MEDS: ceFAZolin 2 GM PREMIX 50 ML IV SCH ×2 (14:33→22:47)
[2017-08-09 15:50] VITALS: BP 132/72; PULSE 88; RESP 20; TEMP 97.6; O2SAT 98
[2017-08-09] MEDS: ENOXAPARIN SODIUM 40 MG/0.4 ML SYRINGE SQ SCH (16:00)
[2017-08-09 19:25] VITALS: BP 119/61; PULSE 80; RESP 18; TEMP 97.3; O2SAT 98
[2017-08-10] VITALS: BP 119/67; PULSE 81; RESP 18; TEMP 97.6; O2SAT 98
[2017-08-10] MEDS: MORPHINE SULFATE 4 MG/ML INJ IV PUSH PRN ×2 (00:35→05:19)
[2017-08-10] MEDS: LACTATED RINGER'S 1000 ML INJ 1,000 ML IV SCH (02:21)
[2017-08-10] MEDS: oxyCODONE/ACETAMINOPHEN 10 MG/325 MG TAB PO PRN ×3 (03:07→10:30)
[2017-08-10] MEDS: ALPRAZolam 0.25 MG TAB PO PRN (03:07)
[2017-08-10] MEDS: KETOROLAC TROMETHAMINE 30 MG/ML (IVP) VIAL IV PUSH SCH (05:19)
[2017-08-10] MEDS: ceFAZolin 2 GM PREMIX 50 ML IV SCH (06:40)
--- NOTE | 2017-08-10 06:40 | PD.ORT.PN ---
Subjective Subjective Remarks POD 1 s/p fasciotomy closure right leg s/p IMN right tibia by Anita doing well. pain controlled. states out of bed with walker and feeling good Objective Vitals Vital Signs Date Time Temp Pulse Resp B/P (MAP) Pulse Ox O2 Delivery O2 Flow Rate FiO2 08/10/17 00:00 97.6 81 18 119/67 (84) 98 08/09/17 19:25 97.3 80 18 119/61 (80) 98 08/09/17 15:50 97.6 88 20 132/72 (92) 98 08/09/17 11:50 97.4 87 20 128/59 (82) 99 08/09/17 09:35 97.6 85 20 122/64 (83) 95 08/09/17 08:45 97.8 83 16 109/63 (78) 95 Nasal Cannula 2 08/09/17 08:30 86 18 113/76 (88) 96 Nasal Cannula 2 08/09/17 08:15 93 15 132/63 (86) 95 Nasal Cannula 2 08/09/17 08:05 97.6 99 20 145/79 (101) 98 Nasal Cannula 3 I/O 08/09/17 08/09/17 08/09/17 08/10/17 08/10/17 08/10/17 07:00 15:00 23:00 07:00 15:00 23:00 Intake Total 500 ml 2330 ml 50 ml Output Total 0 ml 10 ml Balance 0 ml 490 ml 2330 ml 50 ml Intake Oral 2280 ml IV Total 50 ml 50 ml Other 500 ml Drainage Total 0 ml Estimated Blood Loss 10 ml # Voids 4 8 # Bowel Movements 1 0 Result Diagram: 08/06/17200308/09/17 0517 Objective Remarks Vac is C/D/I. EHL/TA/G intact. 2+ DP. Calf compartments are soft with less swelling. +SILT distally. Assessment & Plan Assessment and Plan POD #3: Right Tibial Nail for TIB/Fib fracture POD #1: Right calf fasciotomy for compartment syndrome -NWB RLE -lovenox for DVT prophylaxis -dressing change today -ortho clear for DC home with HHC -f/u wtih Anita in 2 weeks Wallace Dent/First Katelyn STEELE Aug 10, 2017 06:40
--- NOTE | 2017-08-10 06:41 | HHI.FF ---
Face to Face Verification Diagnosis: (1) Tibia/fibula fracture Physical Therapy Gait training Right LE Weight Bearing: Non WB Right LE Range of Motion: Active ROM Nursing Dressing Changes: Daily dressing change, Xeroform, Coverderm/Primapore I have seen patient Bibi Paz on 08/10/17. My clinical findings support the need for the requested home health care services because: Ltd mobility - disease progression I certify that my clinical findings support that this patient is homebound because: Post-op weakness Wallace Dent/Scanning Tech IVETTE Aug 10, 2017 06:41
[2017-08-10] MEDS ORDERED: WALKER/ADULT/FO1 MIS (06:42)
[2017-08-10 08:00] VITALS: BP 129/65; PULSE 78; RESP 17; TEMP 97.8; O2SAT 99
[2017-08-10] MEDS: PANTOPRAZOLE SOD 40 MG DELAYED RELEASE TAB PO SCH (08:37)
[2017-08-10] MEDS: DOCUSATE SODIUM 50 MG/SENNA 8.6 MG TAB PO SCH (08:38)
[2017-08-10] MEDS: SODIUM CHLORIDE 0.9% FLUSH 10 ML FLUSH IV FLUSH SCH (08:38)
[2017-08-10] MEDS: ENOXAPARIN SODIUM 40 MG/0.4 ML SYRINGE SQ SCH ×2 (08:39→10:42)
[2017-08-10] MEDS ORDERED: DOCU100C15 PO (10:00)
[2017-08-10] MEDS ORDERED: ALPR.25 PO (10:00)
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
== END 2017-08-10 10:55 | disposition home health service (06) | DRG 493 ==
LOC: PHED 20:45 → PHEDA 22:26 → N06A 08-05 02:07
PROVIDERS: ADMIT Hospitalist; ATTEND Hospitalist
PROC: 0QSJXZZ Reposition Right Fibula, External Approach (ICD-10-PCS; 2017-08-05)
PROC: 0QSG06Z Reposition Right Tibia with Intramedullary Internal Fixation Device, Open Approach (ICD-10-PCS; principal; 2017-08-05 12:53)
PROC: 0KNS0ZZ Release Right Lower Leg Muscle, Open Approach (ICD-10-PCS; 2017-08-06)
PROC: 0KNS0ZZ Release Right Lower Leg Muscle, Open Approach (ICD-10-PCS; 2017-08-06)
PROC: 0KNS0ZZ Release Right Lower Leg Muscle, Open Approach (ICD-10-PCS; 2017-08-06)
PROC: 0KNS0ZZ Release Right Lower Leg Muscle, Open Approach (ICD-10-PCS; 2017-08-06)
PROC: 0JQN0ZZ Repair Right Lower Leg Subcutaneous Tissue and Fascia, Open Approach (ICD-10-PCS; 2017-08-09)
PROC: 3E10X8Z Irrigation of Skin and Mucous Membranes using Irrigating Substance (ICD-10-PCS; 2017-08-09)
DX: S82.251A Displaced comminuted fracture of shaft of right tibia, initial encounter for closed fracture (principal); T79.A0XA Compartment syndrome, unspecified, initial encounter; S82.451A Displaced comminuted fracture of shaft of right fibula, initial encounter for closed fracture; F17.200 Nicotine dependence, unspecified, uncomplicated; W18.39XA Other fall on same level, initial encounter; Y93.89 Activity, other specified; Y92.9 Unspecified place or not applicable; S80.211A Abrasion, right knee, initial encounter; K21.9 Gastro-esophageal reflux disease without esophagitis; F41.9 Anxiety disorder, unspecified
CPT/HCPCS: 73590; 76000; 80048; 80053; 85014; 85018; 85025; 85610; 90471; 90714; 93005; 94150; 96372; 96374; C1713; E0113; J0131; J0330; J0690; J1100; J1170; J1580; J1650; J1885; J2060; J2175; J2250; J2270; J2405; J2710; J3010; J3370; J7030; J7050; J7120